=== PATIENT | male | born 1955 | race Caucasian/White ===

== ENCOUNTER 2020-06-16 21:50 | Emergency (ER) | payer BC ==
[2020-06-16] MEDS ORDERED: Sodium Chloride 0.9% 10 ML Syringe FLUSH PRN (22:00)
--- NOTE | 2020-06-16 23:05 | EDM.PDOC ---
ED HPI GENERAL MEDICAL PROBLEM - General Chief Complaint: General Stated Complaint: HEART SKIPPING BEATS Time Seen by Provider: 06/16/20 23:05 Source of Information: Reports: Patient - History of Present Illness INITIAL COMMENTS - FREE TEXT/NARRATIVE: Rik, 64-year-old male, has been noticing intermittent palpitations over the past 10 to 14 days. Today he was cutting wood and noticed that the became more prominent with lifting of the firewood debris. Denies any shortness of breath or chest pain with this but stated palpitations seemingly got more prominent at which time he said he became more focused on them. Denies any recent illness or concerns. Last clinic visit was November for physical done by a private office in [place]. States he is not one to go into the medical office very often. Denies any fever chills or COVID-19 type symptoms. Onset: Today, Sudden Duration: Hour(s): - Related Data Allergies Allergy/AdvReac Type Severity Reaction Status Date / Time morphine Allergy Cardiac Verified 06/16/20 23:35 Arrest venom-honey bee Allergy Swelling Verified 06/16/20 23:35 [bee venom (honey bee)] band aid adhesive Allergy Rash Uncoded 06/16/20 23:35 Home Meds: Home Meds metFORMIN [Glucophage XR] 500 mg PO DAILY 09/12/14 [History] Ascorbic Acid [Vitamin C] 1,000 mg PO ASDIRECTED PRN 06/16/20 [History] Chromium Amino Acid Chelate [Chromium] 1 tab PO DAILY 06/16/20 [History] Losartan Potassium 50 mg PO DAILY 06/16/20 [History] Vitamin E 2 cap PO DAILY 06/16/20 [History] Past Medical History HEENT History: Reports: None Cardiovascular History: Reports: None Respiratory History: Reports: None Gastrointestinal History: Reports: Other (See Below) (Exploratory surgery of the abdomen for mass removal and had a expandable GI sleeve/bulb placed with a port for fluid administration/expansion. States the port flipped shortly after the surgery and has been nonfunctional. Secondary of his other surgeries it cannot be removed easily.) Psychiatric History: Reports: None - Past Surgical History GI Surgical History: Reports: Bariatric Procedure, Hernia, Abdominal Musculoskeletal Surgical History: Reports: Knee Replacement - Past Imaging History Past Imaging History: Reports: MRI, Xray Social & Family History - Family History Family Medical History: No Pertinent Family History - Tobacco Use Tobacco Use Status *Q: Never Tobacco User - Caffeine Use Caffeine Use: Reports: Coffee, Soda - Alcohol Use Alcohol Use History: Yes Alcohol Use Frequency: Rarely, Socially - Recreational Drug Use Recreational Drug Use: No Drug Use in Last 12 Months: No ED ROS GENERAL - Review of Systems Review Of Systems: Comprehensive ROS is negative, except as noted in HPI. ED EXAM, GENERAL - Physical Exam Exam: See Below Free Text/Narrative:: Alert, oriented, in no acute distress. HEENT is negative to discharge or deformity with no evidence of cyanosis nor pallor. [place] moist mucous membranes no erythema. Neck is soft, supple, no rigidity no JVD, no carotid bruit auscultated. Thorax is clear no wheezes no crackles. Cardiac S1-S2 occasional ectopic beat radial pulse correlates with apical heart rate. Abdomen rotund no mass no tenderness palpable port in the mid left abdominal wall. Surgical scars well-healed and present. No edema to lower extremities. rectal deferred. #1 Interpretation EKG Date: 06/16/20 Time: 22:18 Rhythm: NSR Rate (Beats/Min): 83 [place]: Normal P-Wave: Present QRS: Normal ST-T: Normal QT: Normal Comparison: Change From Previous EKG (Ectopy with PVC.) EKG Interpretation Comments: Occasional PVC Course - Vital Signs Last Recorded V/S: Last Vital Signs Temp 36.4 C 06/16/20 22:00 Pulse 87 06/16/20 22:00 Resp 13 06/16/20 22:00 BP 139/79 06/16/20 22:00 Pulse Ox 95 06/16/20 22:00 - Orders/Labs/Meds Orders: Active Orders 24 hr Category Date Time Status EKG Documentation Completion [RC] ASDIRECTED Care 06/16/20 22:44 Active Peripheral IV Care [RC] . DIRECTED Care 06/16/20 22:00 Active CXR [Chest 2V] [CR] Stat Exams 06/16/20 22:43 Ordered Sodium Chloride 0.9% [Saline Flush] Med 06/16/20 22:00 Active 10 ml FLUSH Q8HR PRN Peripheral IV Insertion Adult [OM.PC] Routine Oth 06/16/20 22:00 Ordered EKG 12 Lead [EK] Stat Ther 06/16/20 22:00 Ordered Medication Orders Sodium Chloride (Saline Flush) 10 ml FLUSH Q8HR PRN PRN Reason: keep vein open Labs: Laboratory Tests 06/16/20 06/16/20 Range/Units 22:25 22:25 WBC 7.16 (5.00-10.00) 10^3/uL RBC 5.03 (4.50-6.00) 10^6/uL Hgb 14.9 (13.0-17.0) g/dL Hct 43.4 (40.0-52.0) % MCV 86.3 D (82.0-92.0) fL MCH 29.6 (27.0-31.0) pg MCHC 34.3 (32.0-36.0) g/dL RDW 12.6 (11.5-14.5) % Plt Count 183 (150-400) 10^3/uL MPV 10.6 H (7.4-10.4) fL Immature Gran % (Auto) 0.1 (0.0-5.0) % Neut % (Auto) 68.1 (50.0-70.0) % Lymph % (Auto) 21.6 (20.0-40.0) % [place] % (Auto) 7.8 (2.0-8.0) % Eos % (Auto) 2.1 (1.0-3.0) % Baso % (Auto) 0.3 (0.0-1.0) % Neut # (Auto) 4.87 (2.50-7.00) 10^3/uL Lymph # (Auto) 1.55 (1.00-4.00) 10^3/uL [place] # (Auto) 0.56 (0.10-0.80) 10^3/uL Eos # (Auto) 0.15 (0.10-0.30) 10^3/uL Baso # (Auto) 0.02 (0.00-0.10) 10^3/uL Immature Gran # (Auto) 0.01 (0.00-0.50) 10^3/uL Sodium 137 (136-145) mmol/L Potassium 3.7 (3.3-5.3) mmol/L Chloride 101 (98-115) mmol/L Carbon Dioxide 25.7 (21.0-32.0) mmol/L Anion Gap 14.0 (5-15) mmol/L BUN 17 (6-25) mg/dL Creatinine 0.92 (0.51-1.17) mg/dL Est Cr Clr Drug Dosing 91.38 mL/min Estimated GFR (MDRD) > 60 mL/min Glucose 278 H (75 - 99) mg/dL Calcium 8.4 L (8.7-10.3) mg/dL Total Bilirubin 0.5 (0.2-1.0) mg/dL AST 20 (15-37) U/L ALT 41 (12-78) U/L Alkaline Phosphatase 97 (46-116) IU/L CK-MB (CK-2) 2.10 (0.00-4.30) ng/mL Troponin I < 0.04 (0.00-0.070) ng/mL Total Protein 6.4 (6.4-8.2) g/dL Albumin 3.49 (3.00-4.80) g/dL Meds: Medications Generic Name Dose Route Start Last Admin Trade Name Freq PRN Reason Stop Dose Admin Sodium Chloride 10 ml 06/16/20 22:00 Saline Flush FLUSH Q8HR PRN keep vein open - Radiology Interpretation Free Text/Narrative:: Chest x-ray 2 view shows no cardiomegaly, no infiltrate. No evidence COPD. Over read pending Departure - Departure Time of Disposition: 23:43 Disposition: Home, Self-Care 01 Condition: Good Clinical Impression: Heart palpitations, Diabetes 1.5, managed as type 2 - Discharge Information *PRESCRIPTION DRUG MONITORING PROGRAM REVIEWED*: Not Applicable *COPY OF PRESCRIPTION DRUG MONITORING REPORT IN PATIENT UZMA: Not Applicable Referrals: Rosio Mckenna PA-C [Primary Care Provider] - Forms: ED Department Discharge Additional Instructions: Contact Rosio in the clinic to discuss your A1c and diabetic regimen as well as Holter monitor or event monitor to track your irregular heartbeats. Tonight your blood sugar is elevated, of which I attribute to what you claimed to have been eaten this evening for your meal. Continue your medications as directed, pertaining as close as possible to your diabetic diet. Limit your caffeine intake is at can attribute to increased palpitations. Follow-up if worsening symptoms, otherwise contact clinic for appointment. Sepsis Event Note (ED) - Evaluation Sepsis Screening Result: No Definite Risk - Focused Exam Vital Signs: Vital Signs Temp Pulse Resp BP Pulse Ox 06/16/20 22:00 36.4 C 87 13 139/79 95 - Problem List & Annotations (1) Heart palpitations SNOMED Code(s): 86569070 Code(s): R00.2 - PALPITATIONS Status: Acute Priority: High Current Visit: Yes (2) Diabetes 1.5, managed as type 2 SNOMED Code(s): 281219504 Code(s): E13.9 - OTHER SPECIFIED DIABETES MELLITUS WITHOUT COMPLICATIONS Status: Chronic Priority: Medium Current Visit: Yes (3) History of bariatric surgery SNOMED Code(s): 786183594, 829176715 Code(s): Z98.84 - BARIATRIC SURGERY STATUS Status: Chronic Priority: Low Current Visit: Yes - Problem List Review Problem List Initiated/Reviewed/Updated: Yes - My Orders Last 24 Hours: My Active Orders 06/16/20 22:00 Peripheral IV Care [RC] . DIRECTED Sodium Chloride 0.9% [Saline Flush] 10 ml FLUSH Q8HR PRN Peripheral IV Insertion Adult [OM.PC] Routine EKG 12 Lead [EK] Stat 06/16/20 22:43 CXR [Chest 2V] [CR] Stat 06/16/20 22:44 EKG Documentation Completion [RC] ASDIRECTED - Assessment/Plan Last 24 Hours: My Active Orders 06/16/20 22:00 Peripheral IV Care [RC] . DIRECTED Sodium Chloride 0.9% [Saline Flush] 10 ml FLUSH Q8HR PRN Peripheral IV Insertion Adult [OM.PC] Routine EKG 12 Lead [EK] Stat 06/16/20 22:43 CXR [Chest 2V] [CR] Stat 06/16/20 22:44 EKG Documentation Completion [RC] ASDIRECTED Plan: Contact Rosio in the clinic to discuss your A1c and diabetic regimen as well as Holter monitor or event monitor to track your irregular heartbeats. Tonight your blood sugar is elevated, of which I attribute to what you claimed to have been eaten this evening for your meal. Continue your medications as directed, pertaining as close as possible to your diabetic diet. Limit your caffeine intake is at can attribute to increased palpitations. Follow-up if worsening symptoms, otherwise contact clinic for appointment.
[2020-06-16 23:30] LABS: CHLORIDE,CL 101 mmol/L (98-115); SODIUM,NA 137 mmol/L (136-145)
[2020-06-17 03:04] VITALS: BP 133/71; PULSE 76
--- NOTE | 2020-06-17 07:01 | CR ---
[id number] RAD/RAD Chest PA And Lateral EXAM: RAD Chest PA And Lateral CLINICAL DATA: PALPITATIONS COMPARISON: CORRELATION IS MADE WITH FEBRUARY 26, 2011 FINDINGS: The lungs are clear. The cardiomediastinal contour is prominent but stable. The regional bones and soft tissues are unremarkable. IMPRESSION: NO ACUTE PROCESS. Cedric Taylor MD 06/17/20 0700 Thank you for allowing us to participate in the care of your patient.
== END 2020-06-17 00:01 | disposition home or self-care (01) ==
LOC: KA.ED 21:50
DX: R00.2 Palpitations (principal); E11.9 Type 2 diabetes mellitus without complications; Z88.5 Allergy status to narcotic agent; Z91.030 Bee allergy status; Z91.048 Other nonmedicinal substance allergy status; Z79.84 Long term (current) use of oral hypoglycemic drugs; Z79.899 Other long term (current) drug therapy
CPT/HCPCS: 71046; 80053; 82553; 84484; 85025; 93005; 99284; 99285-25

== ENCOUNTER 2024-09-29 21:10 | Inpatient (IN) | payer MEDICARE, OTHER ==
[2024-09-29] MEDS ORDERED: Sodium Chloride 0.9% 10 ML Syringe FLUSH PRN (21:33)
[2024-09-29 21:36] LABS: HEMATOCRIT 44.9 % (40.0-52.0); HEMOGLOBIN 15.8 g/dL (13.0-17.0); IMMATURE GRAN ABSOLUTE AUTO 0.14 10^3/uL (0.00-0.04); IMMATURE GRAN PERCENT AUTO 0.9 % (0.0-0.4); LYMPHOCYTES ABSOLUTE AUTO 0.43 10^3/uL (1.00-4.00); LYMPHOCYTES PERCENT AUTO 2.7 % (20.0-40.0); MEAN CORPUSCULAR HEMOGLOBIN 29.9 pg (27.0-31.0); MEAN CORPUSCULAR HGB CONC 35.2 g/dL (32.0-36.0); MEAN PLATELET VOLUME 10.3 fL (7.4-10.4); MONOCYTES ABSOLUTE AUTO 0.77 10^3/uL (0.10-0.80); MONOCYTES PERCENT AUTO 4.8 % (2.0-8.0); NEUTROPHILS ABSOLUTE AUTO 14.55 10^3/uL (2.50-7.00); NEUTROPHILS PERCENT AUTO 91.6 % (50.0-70.0); PLATELET COUNT,PLT 223 10^3/uL (150-400); RED BLOOD CELL COUNT 5.28 10^6/uL (4.50-6.00); RED CELL DISTRIBUTION WIDTH 12.8 % (11.5-14.5); WHITE BLOOD CELL COUNT,WBC 15.89 10^3/uL (5.00-10.00)
[2024-09-29 21:42] LABS: APPEARANCE,URINE CLEAR (CLEAR); BILIRUBIN,URINE NEGATIVE (NEGATIVE); COLOR,URINE YELLOW (YELLOW); GLUCOSE,URINE 500 mg/dL (NEGATIVE); KETONES,URINE NEGATIVE (NEGATIVE); LEUKOCYTE ESTERASE,URINE NEGATIVE (NEGATIVE); NITRITE,URINE NEGATIVE (NEGATIVE); OCCULT BLOOD,URINE NEGATIVE (NEGATIVE); PROTEIN,URINE NEGATIVE (NEGATIVE); UROBILINOGEN,URINE 0.2 E.U./dL (0.2-1.0)
[2024-09-29 21:53] LABS: ALANINE AMINOTRANSFERASE,ALT 43 U/L (14-63); ALBUMIN 3.15 g/dL (3.40-5.00); ALKALINE PHOSPHATASE 219 U/L (46-116); ANION GAP 16.5 mmol/L (5-15); ASPARTATE AMNIOTRANSFERASE,AST 15 U/L (15-37); BILIRUBIN TOTAL 0.9 mg/dL (0.2-1.0); BLOOD UREA NITROGEN,BUN 29 mg/dL (7-18); CALCIUM 8.7 mg/dL (8.7-10.3); CARBON DIOXIDE,CO2 23.5 mmol/L (21.0-32.0); CHLORIDE,CL 93 mmol/L (98-107); CREATININE 1.01 mg/dL (0.51-1.17); EST CRCL DRUG DOSING (CG) 73.28 mL/min; SODIUM,NA 128 mmol/L (136-145)
[2024-09-29 21:54] LABS: C-REACTIVE PROTEIN < 0.50 mg/dL (0.00-0.50); ESTIMATED GFR 82 mL/min (>=60)
[2024-09-29 21:56] LABS: GLUCOSE RANDOM 741 mg/dL (70-140)
[2024-09-29] MEDS ORDERED: 50% Dextrose in Water 50 ML Syringe IVPUSH PRN ×2 (22:02→22:51)
[2024-09-29] MEDS ORDERED: Glucagon,Human Recombinant 1 MG Vial IM PRN ×2 (22:02→22:51)
[2024-09-29] MEDS: Insulin Regular, Human 100 Units/ML 10 ML Vial IV ONE ×2 (22:11→23:05)
[2024-09-29] MEDS: Sodium Chloride 0.9% 1,000 ML IV ONE (23:20)
[2024-09-30] MEDS ORDERED: Glucagon,Human Recombinant 1 MG Vial IM PRN ×2 (01:26)
[2024-09-30] MEDS ORDERED: 50% Dextrose in Water 50 ML Syringe IVPUSH PRN (01:26)
[2024-09-30] MEDS: Sodium Chloride 0.9% 1,000 ML IV SCH (01:49)
[2024-09-30] MEDS: Acetaminophen 500 MG Tab PO PRN (04:19)
[2024-09-30 07:46] LABS: HEMOGLOBIN A1C 8.2 % (4.3-5.7)
[2024-09-30 07:56] LABS: CALCIUM 8.3 mg/dL (8.7-10.3); CARBON DIOXIDE,CO2 26.5 mmol/L (21.0-32.0); CREATININE 0.82 mg/dL (0.51-1.17); EST CRCL DRUG DOSING (CG) 93.1 mL/min; POTASSIUM,K 4.5 mmol/L (3.5-5.1)
[2024-09-30] MEDS: hydrOXYzine HCl 25 MG Tab PO SCH (08:08)
[2024-09-30] MEDS: Dexamethasone 4 MG Tab PO SCH (08:08)
[2024-09-30] MEDS: levETIRAcetam 500 MG Tab PO SCH (08:08)
[2024-09-30] MEDS: Losartan 50 MG Tab PO SCH (08:08)
[2024-09-30] MEDS: Enoxaparin 40 MG/0.4 ML Syringe SUBCUT SCH (08:09)
[2024-09-30] MEDS: Insulin Lispro 100 Unit/ML 3 ML KwikPen SUBCUT SCH (08:24)
[2024-09-30] MEDS: Acetaminophen 325 MG Tab PO PRN (09:14)
[2024-09-30] MEDS: Insulin Glargine,Hum.Rec.Anlog 100 UNIT/ML 3 ML Pen SUBCUT SCH (10:40)
[2024-09-30 10:44] VITALS: BP 129/80; PULSE 69
== END 2024-09-30 11:41 | disposition home or self-care (01) | DRG 638 ==
LOC: KA.ED 21:10 → KA.MS 09-30
PROVIDERS: ADMIT Family Medicine; ATTEND Family Medicine
DX: E11.65 Type 2 diabetes mellitus with hyperglycemia (principal); E11.9 Type 2 diabetes mellitus without complications; E87.1 Hypo-osmolality and hyponatremia; G25.9 Extrapyramidal and movement disorder, unspecified; Z88.5 Allergy status to narcotic agent; Z91.030 Bee allergy status; Z91.048 Other nonmedicinal substance allergy status; Z79.84 Long term (current) use of oral hypoglycemic drugs; E66.9 Obesity, unspecified; Z68.37 Body mass index [BMI] 37.0-37.9, adult; Z68.36 Body mass index [BMI] 36.0-36.9, adult; E87.8 Other disorders of electrolyte and fluid balance, not elsewhere classified; E78.00 Pure hypercholesterolemia, unspecified; I10 Essential (primary) hypertension; E29.1 Testicular hypofunction; M19.90 Unspecified osteoarthritis, unspecified site; F41.9 Anxiety disorder, unspecified; H54.7 Unspecified visual loss; Z79.4 Long term (current) use of insulin; Z88.8 Allergy status to other drugs, medicaments and biological substances; Z85.72 Personal history of non-Hodgkin lymphomas; Z98.890 Other specified postprocedural states; Z96.659 Presence of unspecified artificial knee joint; Z79.899 Other long term (current) drug therapy
CPT/HCPCS: 36415; 80048; 80053; 81003; 82947; 83036; 85025; 86140; 96360; 99236-GT; 99285-25; A9270-GY; J1650; J1815-GY; J7030; J8540; Q3014

== ENCOUNTER 2024-11-06 15:15 | Inpatient (IN) | payer OTHER, MEDICARE ==
[2024-11-06] MEDS ORDERED: LORazepam Conc Solution 2 MG/ML 30 ML Bottle PO PRN (15:43)
[2024-11-06] MEDS ORDERED: Morphine Oral Concentrate 20 MG/ML 30 ML Bottle PO PRN (15:45)
[2024-11-06] MEDS ORDERED: Ondansetron 4 MG Tab.DIS PO PRN (15:49)
[2024-11-06] MEDS ORDERED: Bisacodyl 10 MG Supp RECTAL PRN (16:00)
[2024-11-06] MEDS ORDERED: Acetaminophen 650 MG Supp RECTAL PRN (16:00)
[2024-11-06 17:29] VITALS: BP 111/71; PULSE 144
[2024-11-06] MEDS: LORAZEPAM 2 MG/ML PO SCH (18:43)
[2024-11-06] MEDS: Morphine Oral Concentrate 20 MG/ML 30 ML Bottle PO SCH ×3 (18:44→19:19)
[2024-11-06] MEDS: HYOSCYAMINE 0.125 MG PO PRN (20:01)
[2024-11-06] MEDS: Morphine Oral Concentrate 20 MG/ML 30 ML Bottle PO PRN (20:15)
[2024-11-06] MEDS: LORazepam Conc Solution 2 MG/ML 30 ML Bottle PO PRN (20:51)
== END 2024-11-07 01:30 | disposition expired | DRG 951 ==
LOC: KA.MS 16:05
PROVIDERS: ADMIT Nurse Practitioner; ATTEND Nurse Practitioner
DX: Z51.5 Encounter for palliative care (principal); C79.31 Secondary malignant neoplasm of brain; Z66 Do not resuscitate
CPT/HCPCS: A9270-GY